=== PATIENT | female | born 1980 | race Caucasian/White ===

== ENCOUNTER 2017-05-05 16:27 | Emergency (ER) | payer OTHER ==
[2017-05-05 16:35] VITALS: BP 147/98
[2017-05-05] MEDS ORDERED: CYCL-331 PO (18:14)
[2017-05-05] MEDS ORDERED: HYDR-971 PO (18:14)
--- NOTE | 2017-05-05 18:17 | PHYS DOC ---
General Chief Complaint: BACK PAIN - NO INJURY Stated Complaint: BACK PAIN Time Seen by MD: 18:07 Source: patient Exam Limitations: no limitations Problems: History of Present Illness Initial Comments Pt is 37/F to ED c/o back pain. Pt states she "jumped wrong" on trampoline yesterday felt twinge right low back. 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 Right sided low back pain last night mild initially worsened thru night. Today prolonged standing at swim meet made it worse, has discomfort right buttock down part of thigh. No other trauma no prior back injury, OTC ibu not helping. No flank pain, no leg weakness/saddle anesthesia/bowel or bladder sx. Worse with movement better with rest, pain described as achy mod-severe. Jumps on trampoline regularly, no prior issues. Timing/Duration: 24 hours, getting worse Severity: moderate Modifying Factors: worse with movement, improves with rest Associated Symptoms: other Past Medical History Medical History: hypertension Surgical History: noncontributory Social History Smoker: non-smoker Alcohol: occasionally Drugs: none Review of Systems Constitutional: denies chills, denies fever Respiratory: denies cough, denies shortness of breath Cardiovascular: denies chest pain, denies palpitations Gastrointestinal: denies diarrhea, denies nausea, denies vomiting Genitourinary: see HPI Musculoskeletal: see HPI, denies joint swelling, denies neck pain Psychiatric/Neurological: see HPI, denies headache, denies numbness, denies paresthesia, denies weakness Hematologic/Lymphatic: denies blood clots, denies easy bleeding, denies easy bruising Physical Exam General Appearance: WD/WN, mild distress Ear, Nose, Throat: hearing grossly normal, normal ENT inspection Neck: non-tender, full range of motion, supple Respiratory: normal breath sounds, no respiratory distress Gastrointestinal: normal bowel sounds, non tender, soft Back: no CVA tenderness, no vertebral tenderness, decreased range of motion, muscle spasm Extremities: non-tender, normal inspection, no pedal edema, pelvis stable 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 Rx given. Departure Time of Disposition: 18:16 Disposition: 01 HOME, SELF-CARE Diagnosis: lumbar strain Condition: GOOD Patient Instructions: Low Back Strain with Rehab-SportsMed Additional Instructions: Please review the patient education handout. Ibuprofen OTC for baseline pain. Rx: cyclobenzaprine, norco 5mg #15 Follow up with your doctor in 3-4 days if not better. Return to ED with new or changing symptoms. PRIMITIVO BOWMAN DO May 05, 2017 18:17
== END 2017-05-05 18:22 | disposition home or self-care (01) ==
LOC: ER 16:27
DX: S39.012A Strain of muscle, fascia and tendon of lower back, initial encounter (principal); I10 Essential (primary) hypertension; X58.XXXA Exposure to other specified factors, initial encounter; Y93.44 Activity, trampolining; Y99.8 Other external cause status; Y92.89 Other specified places as the place of occurrence of the external cause
CPT/HCPCS: 99283